=== PATIENT | male | born 1970 | race Caucasian/White ===

== ENCOUNTER 2023-10-02 13:03 | Emergency (ER) | payer OTHER ==
--- NOTE | 2023-10-02 14:21 | ED ---
Psych HPI <Matt Hernandez - Last Filed: 10/03/23 14:27> - General Source: patient Mode of arrival: ambulatory <Ameena Jj - Last Filed: 10/04/23 16:20> - General Chief Complaint: Psychiatric Symptoms Stated Complaint: Mental Health Time Seen by Provider: 10/02/23 13:05 - History of Present Illness Initial Comments: 53-year-old male presents emergency department requesting psychiatric evaluation. States that he has been suffering from panic attacks his whole life. He recently moved back here from [place]. He was seeing a psychiatrist there who recommended our facility for evaluation. Patient has hopelessness. States that he has suicidal thoughts without attempt. He does take several psychiatric medications. He denies alcohol or drug use. No other alleviating, precipitating or modifying factors (Ameena Jj) - Related Data Home Medications Medication Instructions Recorded Confirmed Atorvastatin [Lipitor] 10 mg PO DAILY 10/02/23 10/02/23 Enalapril [Vasotec] 20 mg PO DAILY 10/02/23 10/02/23 PARoxetine [Paxil] 20 mg PO DAILY 10/02/23 10/02/23 Venlafaxine HCl ER [Effexor Xr] 150 mg PO DAILY 10/02/23 10/02/23 amLODIPine [Norvasc] 10 mg PO DAILY 10/02/23 10/02/23 clonazePAM [KlonoPIN] 2 mg PO BID PRN 10/02/23 10/02/23 Allergies Allergy/AdvReac Type Severity Reaction Status Date / Time lisinopril AdvReac Cough Verified 10/03/23 12:04 Review of Systems ROS Other: All systems not noted in ROS Statement are negative. <Matt Hernandez - Last Filed: 10/03/23 14:27> ROS Other: All systems not noted in ROS Statement are negative. <Ameena Jj - Last Filed: 10/04/23 16:20> ROS Statement: Those systems with pertinent positive or pertinent negative responses have been documented in the HPI. Past Medical History Past Medical History: Diabetes Mellitus, Hyperlipidemia, Hypertension Additional Past Medical History / Comment(s): sleep apnea History of Any Multi-Drug Resistant Organisms: None Reported Past Surgical History: Orthopedic Surgery Additional Past Surgical History / Comment(s): right hand surgery and left knee surgery Past Psychological History: Anxiety, Panic Disorder Smoking Status: Never smoker Past Alcohol Use History: None Reported Past Drug Use History: None Reported <Ameena Jj - Last Filed: 10/04/23 16:20> General Exam Limitations: no limitations General appearance: alert, in no apparent distress Head exam: Present: atraumatic, normocephalic, normal inspection Eye exam: Present: normal appearance, PERRL, EOMI. Absent: scleral icterus, conjunctival injection, periorbital swelling ENT exam: Present: normal exam, mucous membranes moist Neck exam: Present: normal inspection. Absent: tenderness, meningismus, lymphadenopathy Respiratory exam: Present: normal lung sounds bilaterally. Absent: respiratory distress, wheezes, rales, rhonchi, stridor Cardiovascular Exam: Present: regular rate, normal rhythm, normal heart sounds. Absent: systolic murmur, diastolic murmur, rubs, gallop, clicks GI/Abdominal exam: Present: soft, normal bowel sounds. Absent: distended, tenderness, guarding, rebound, rigid Extremities exam: Present: normal inspection, full ROM, normal capillary refill. Absent: tenderness, pedal edema, joint swelling, calf tenderness Back exam: Present: normal inspection Neurological exam: Present: alert, oriented X3, CN II-XII intact Psychiatric exam: Present: depressed, flat affect Skin exam: Present: warm, dry, intact, normal color. Absent: rash <Ameena Jj - Last Filed: 10/04/23 16:20> Course Vital Signs 10/02/23 10/02/23 10/03/23 13:04 16:20 06:51 Temperature 97.6 F Pulse Rate 85 76 54 L Respiratory 18 16 16 Rate Blood Pressure 115/74 136/71 110/64 O2 Sat by Pulse 97 99 96 Oximetry 10/03/23 10/04/23 19:35 05:56 Temperature 97.9 F Pulse Rate 60 63 Respiratory 16 17 Rate Blood Pressure 109/63 121/75 O2 Sat by Pulse 96 97 Oximetry Medical Decision Making <Matt Hernandez - Last Filed: 10/03/23 14:27> - Lab Data Result diagrams: 10/03/23 14:31 10/03/23 14:31 <BossmansteffanyAmeena Nuvia - Last Filed: 10/04/23 16:20> - Medical Decision Making Was patient admitted / discharged? hospital course, mention meds given and route, prescriptions, significant lab abnormalities, going to OR and other pertinent info. @ -Patient was signed out to me by Dr. Cheng at 7 AM. I will back into the room to reevaluate the patient he insisted that he can no longer live with this depression and panic attacks. Patient states if a solution is not Boutt he will kill himself. Patient denies any physical complaints today. I filled out a clinical certification of the patient would have to be transferred to another facility. Undiagnosed new problem with uncertain prognosis? @ -No Drug Therapy requiring intensive monitoring for toxicity (Heparin, Nitro, Insulin, Cardizem)? @ -No Were any procedures done? @ -No Diagnosis/symptom? @ -Depression, suicidal ideations Acute, or Chronic, or Acute on Chronic? @ -Acute Uncomplicated (without systemic symptoms) or Complicated (systemic symptoms)? @ -Complicated Side effects of treatment? @ -No Exacerbation, Progression, or Severe Exacerbation? @ -No Poses a threat to life or bodily function? How? (Chest pain, [place], [place], pneumonia, PE, COPD, DKA, ARF, appy, cholecystitis, CVA, Diverticulitis, Homicidal, Suicidal, threat to staff... and all critical care pts) no @ -No (Matt Hernandez) Was pt. sent in by a medical professional or institution (CARLINE Gonzalez, DENTAL LABORATORY MANAGER, urgent care, hospital, or [place] [facility] facility...) When possible be specific @ -No Did you speak to anyone other than the patient for history (EMS, parent, family, police, friend...)? What history was obtained from this source @ -No Did you review nursing and triage notes (agree or disagree)? Why? @ -I reviewed and agree with nursing and triage notes Were old charts reviewed (outside hosp., previous admission, EMS record, old EKG, old radiological studies, urgent care reports/EKG's, [place] [facility] records)? Report findings @ -No old charts were reviewed Differential Diagnosis (chest pain, altered mental status, abdominal pain women, abdominal pain men, vaginal bleeding, weakness, fever, dyspnea, syncope, headache, dizziness, GI bleed, back pain, seizure, CVA, palpatations, mental health, musculoskeletal)? @Differential Mental Health Depression, anxiety, bipolar, psychosis, schizophrenia, borderline personality, situational depression, adjustment disorder, behavioral disorder, brain tumor, malingering, substance abuse, encephalopathy, medication reaction, dementia, hypothyroidism, degenerative neurologic disorder, lupus.... This is not meant to be all-inclusive list EKG interpreted by me (3pts min.). @ -Not done X-rays interpreted by me (1pt min.). @ -None done CT interpreted by me (1pt min.). @ -None done U/S interpreted by me (1pt. min.). @ -None done What testing was considered but not performed or refused? (CT, X-rays, U/S, labs)? Why? @ -None What meds were considered but not given or refused? Why? @ -None Did you discuss the management of the patient with other professionals (professionals i.e. , PA, DENTAL LABORATORY MANAGER, lab, RT, psych nurse, nephrology social worker, computer science teacher, teacher, information management officer, piano case maker)? Give summary @ -Spoke with APS who needs to evaluate the patient Was smoking cessation discussed for >3mins.? @ -No Was critical care preformed (if so, how long)? @ -No Were there social determinants of health that impacted care today? How? (Homelessness, low income, unemployed, alcoholism, drug addiction, transportation, low edu. Level, literacy, decrease access to med. care, custodial, rehab)? @ -No Was there de-escalation of care discussed even if they declined (Discuss DNR or withdrawal of care, Hospice)? DNR status @ -No What co-morbidities impacted this encounter? (DM, HTN, Smoking, COPD, CAD, Cancer, CVA, ARF, Chemo, Hep., AIDS, mental health diagnosis, sleep apnea, morbid obesity)? @ -Depression Was patient admitted / discharged? Hospital course, mention meds given and route, prescriptions, significant lab abnormalities, going to OR and other perti nent info. @ -Upon arrival patient was seen and evaluated in room 16. Thorough history and physical exam was performed. Patient is reporting to depression with suicidal ideations. Because of this he requires EPS evaluation. Patient is signed out to Dr. Cheng at this time as EPS has not evaluated the patient at the time of my shift end (Ameena Jj) - Lab Data Lab Results 10/03/23 10/03/23 10/03/23 Range/Units 14:31 14:31 14:31 WBC 6.9 (3.8-10.6) k/uL RBC 5.52 (4.30-5.90) m/uL Hgb 16.7 (13.0-17.5) gm/dL Hct 50.9 (39.0-53.0) % MCV 92.1 (80.0-100.0) fL MCH 30.3 (25.0-35.0) pg MCHC 32.8 (31.0-37.0) g/dL RDW 12.9 (11.5-15.5) % Plt Count 239 (150-450) k/uL MPV 7.3 Neutrophils % 66 % Lymphocytes % 23 % Monocytes % 6 % Eosinophils % 2 % Basophils % 1 % Neutrophils # 4.6 (1.3-7.7) k/uL Lymphocytes # 1.6 (1.0-4.8) k/uL Monocytes # 0.4 (0-1.0) k/uL Eosinophils # 0.2 (0-0.7) k/uL Basophils # 0.1 (0-0.2) k/uL Manual Slide Review Performed Sodium 136 L (137-145) mmol/L Potassium 4.1 (3.5-5.1) mmol/L Chloride 105 (98-107) mmol/L Carbon Dioxide 24 (22-30) mmol/L Anion Gap 7 mmol/L BUN 14 (9-20) mg/dL Creatinine 0.94 (0.66-1.25) mg/dL Est GFR (CKD-EPI)AfAm >90 (>60 ml/min/1.73 sqM) Est GFR (CKD-EPI)NonAf >90 (>60 ml/min/1.73 sqM) Glucose 205 H (74-99) mg/dL Calcium 9.1 (8.4-10.2) mg/dL Total Bilirubin 0.9 (0.2-1.3) mg/dL AST 21 (17-59) U/L ALT 36 (4-49) U/L Alkaline Phosphatase 93 (38-126) U/L Total Protein 6.2 L (6.3-8.2) g/dL Albumin 3.9 (3.5-5.0) g/dL Urine Opiates Screen Not Detected (NotDetected) Ur Oxycodone Screen Not Detected (NotDetected) Urine Methadone Screen Not Detected (NotDetected) Ur Barbiturates Screen Not Detected (NotDetected) U Tricyclic Antidepress Not Detected (NotDetected) Ur Phencyclidine Scrn Not Detected (NotDetected) Ur Amphetamines Screen Not Detected (NotDetected) U Methamphetamines Scrn Not Detected (NotDetected) U Benzodiazepines Scrn Detected H (NotDetected) Urine Cocaine Screen Not Detected (NotDetected) U Marijuana (THC) Screen Not Detected (NotDetected) SARS-CoV-2 (PCR) (Not Detectd) 10/03/23 Range/Units 15:06 WBC (3.8-10.6) k/uL RBC (4.30-5.90) m/uL Hgb (13.0-17.5) gm/dL Hct (39.0-53.0) % MCV (80.0-100.0) fL MCH (25.0-35.0) pg MCHC (31.0-37.0) g/dL RDW (11.5-15.5) % Plt Count (150-450) k/uL MPV Neutrophils % % Lymphocytes % % Monocytes % % Eosinophils % % Basophils % % Neutrophils # (1.3-7.7) k/uL Lymphocytes # (1.0-4.8) k/uL Monocytes # (0-1.0) k/uL Eosinophils # (0-0.7) k/uL Basophils # (0-0.2) k/uL Manual Slide Review Sodium (137-145) mmol/L Potassium (3.5-5.1) mmol/L Chloride (98-107) mmol/L Carbon Dioxide (22-30) mmol/L Anion Gap mmol/L BUN (9-20) mg/dL Creatinine (0.66-1.25) mg/dL Est GFR (CKD-EPI)AfAm (>60 ml/min/1.73 sqM) Est GFR (CKD-EPI)NonAf (>60 ml/min/1.73 sqM) Glucose (74-99) mg/dL Calcium (8.4-10.2) mg/dL Total Bilirubin (0.2-1.3) mg/dL AST (17-59) U/L ALT (4-49) U/L Alkaline Phosphatase (38-126) U/L Total Protein (6.3-8.2) g/dL Albumin (3.5-5.0) g/dL Urine Opiates Screen (NotDetected) Ur Oxycodone Screen (NotDetected) Urine Methadone Screen (NotDetected) Ur Barbiturates Screen (NotDetected) U Tricyclic Antidepress (NotDetected) Ur Phencyclidine Scrn (NotDetected) Ur Amphetamines Screen (NotDetected) U Methamphetamines Scrn (NotDetected) U Benzodiazepines Scrn (NotDetected) Urine Cocaine Screen (NotDetected) U Marijuana (THC) Screen (NotDetected) SARS-CoV-2 (PCR) Not Detected (Not Detectd) Disposition Time of Disposition: 14:18 <Matt Hernandez - Last Filed: 10/03/23 14:27> <Ameena Jj - Last Filed: 10/04/23 16:20> Clinical Impression: Depression, Suicidal ideation Disposition: TRANSFER TO PSYCH HOSP/UNIT Referrals: None,Stated [Primary Care Provider] - 1-2 days
[2023-10-02] MEDS: ACETAMINOPHEN TAB 500 MG TAB PO STA (21:14)
[2023-10-03] MEDS: clonazePAM 1 MG TAB PO SCH ×2 (00:04→11:55)
[2023-10-03] MEDS: VENLAFAXINE HCL ER 150 MG CAP PO SCH (11:55)
[2023-10-03] MEDS: ATORVASTATIN 10 MG TAB PO SCH (11:55)
[2023-10-03] MEDS: amLODIPine 10 MG TAB PO SCH (11:55)
[2023-10-03] MEDS: PARoxetine 20 MG TAB PO SCH (11:55)
[2023-10-03] MEDS: lisinopriL 20 MG TAB PO SCH (11:55)
[2023-10-03] MEDS: ENALAPRIL 20 MG PO SCH ×2 (13:30)
[2023-10-03 15:36] LABS: ALT 36 U/L (4-49); AST 21 U/L (17-59); African American GFR (CKD) >90 (>60 ml/min/1.73 sqM); Albumin 3.9 g/dL (3.5-5.0); Alkaline Phosphatase 93 U/L (38-126); Anion Gap 7 mmol/L; Blood Urea Nitrogen 14 mg/dL (9-20); Calcium 9.1 mg/dL (8.4-10.2); Carbon Dioxide 24 mmol/L (22-30); Chloride 105 mmol/L (98-107); Glucose 205 mg/dL (74-99); Non-African American GFR(CKD) >90 (>60 ml/min/1.73 sqM); Potassium 4.1 mmol/L (3.5-5.1); Sodium 136 mmol/L (137-145); Total Bilirubin 0.9 mg/dL (0.2-1.3); Total Protein 6.2 g/dL (6.3-8.2)
[2023-10-03 15:42] LABS: Basophils # (A) 0.1 k/uL (0-0.2); Basophils % (A) 1 %; Eosinophils # (A) 0.2 k/uL (0-0.7); Eosinophils % (A) 2 %; HCT 50.9 % (39.0-53.0); HGB 16.7 gm/dL (13.0-17.5); Lymphocytes # (A) 1.6 k/uL (1.0-4.8); Lymphocytes % (A) 23 %; MCH 30.3 pg (25.0-35.0); MCHC 32.8 g/dL (31.0-37.0); MCV 92.1 fL (80.0-100.0); Mean Platelet Volume 7.3; Monocytes # (A) 0.4 k/uL (0-1.0); Monocytes % (A) 6 %; Neutrophils # (A) 4.6 k/uL (1.3-7.7); Neutrophils % (A) 66 %; Platelet Count 239 k/uL (150-450); RBC 5.52 m/uL (4.30-5.90); RDW 12.9 % (11.5-15.5); WBC 6.9 k/uL (3.8-10.6)
[2023-10-03 16:35] LABS: Amphetamine Screen,Urine Not Detected (NotDetected); Barbiturate Screen,Urine Not Detected (NotDetected); Benzodiazepines Screen,Urine Detected (NotDetected); Cocaine Screen,Urine Not Detected (NotDetected); Methadone Screen, Urine Not Detected (NotDetected); Opiate Screen,Urine Not Detected (NotDetected); Oxycodone Screen, Urine Not Detected (NotDetected); Phencyclidine Screen,Urine Not Detected (NotDetected); Tricyclic Antidepressant,Urine Not Detected (NotDetected); Urn Cannabinoid Scrn Not Detected (NotDetected)
[2023-10-04] MEDS: ACETAMINOPHEN TAB 325 MG TAB PO STA (15:03)
[2023-10-05 12:20] VITALS: BP 123/75; PULSE 67; RESP 16; TEMP 98.4
== END 2023-10-05 15:58 ==
LOC: EC 13:03
DX: F32.A Depression, unspecified (principal); R45.851 Suicidal ideations; Z88.8 Allergy status to other drugs, medicaments and biological substances; Z11.52 Encounter for screening for COVID-19
CPT/HCPCS: 36415; 80053; 80306; 82075; 85025; 87635; 99285